=== PATIENT | female | born 1975 | race Two or more races ===

== ENCOUNTER → 2017-06-01 | Outpatient (CLI) | payer OTHER | END | disposition home or self-care (01) | LOC: RAD 14:15 → MAMO-SONO 14:15 → RAD 16:23 → MAMO-SONO 06-02 16:19 → RAD 06-02 16:19 | DX: N63.10 Unspecified lump in the right breast, unspecified quadrant (principal); N63.20 Unspecified lump in the left breast, unspecified quadrant; N64.4 Mastodynia; N80.8 Other endometriosis; D25.9 Leiomyoma of uterus, unspecified; E03.8 Other specified hypothyroidism; E04.1 Nontoxic single thyroid nodule; N83.00 Follicular cyst of ovary, unspecified side ==